=== PATIENT | male | born 1965 | race Caucasian/White ===

== ENCOUNTER 2017-07-03 09:27 | Emergency (ER) | payer BC, OTHER ==
[2017-07-03 09:40] VITALS: BP 116/50; PULSE 90; TEMP 98; BMI 36.1
[2017-07-03] MEDS ORDERED: KETOROLAC TROMETHAMINE 60 MG/2 ML VIAL IM ONE (10:44)
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
[2017-07-03] MEDS ORDERED: KETOROLAC TROMETHAMINE 60 MG/2 ML VIAL ONE (10:51)
== END 2017-07-03 11:04 | disposition home or self-care (01) ==
LOC: JERFT 09:27
PROC: 3E0233Z Introduction of Anti-inflammatory into Muscle, Percutaneous Approach (ICD-10-PCS; principal; 2017-07-03)
DX: M54.5 Low back pain (principal); V53.5XXA Driver of pick-up truck or van injured in collision with car, pick-up truck or van in traffic accident, initial encounter; Y92.414 Local residential or business street as the place of occurrence of the external cause; Y93.89 Activity, other specified; Y99.8 Other external cause status
CPT/HCPCS: 99281-25

== ENCOUNTER 2020-09-25 18:35 | Inpatient (IN) | payer OTHER ==
[2020-09-25 18:59] VITALS: BMI 35.9
[2020-09-25 21:01] LABS: BASO % 0.5 % (0-2.0); HEMATOCRIT 45.9 % (35.4-49); HEMOGLOBIN 15.7 GM/dL (11.7-16.9); LYMPH % 29.1 % (8-40); MCH 31.4 pg (25.7-33.7); MCHC 34.2 g/dl (32.0-35.9); MEAN CELL VOLUME 91.9 fl (80-96); MEAN PLT VOLUME 8.9 fl (7.5-11.1); MONO % 8.4 % (3.8-10.2); PLATELET COUNT 190 10^3/uL (134-434); RBC 4.99 M/mm3 (4.00-5.60); RDW 14.5 % (11.9-15.9); WHITE BLOOD COUNT 5.7 K/mm3 (4.0-10.0)
[2020-09-25 21:05] LABS: CHLORIDE 107 mmol/L (98-107); SODIUM 141 mmol/L (136-145)
[2020-09-25 21:07] LABS: CALCIUM 8.7 mg/dL (8.5-10.1)
[2020-09-25 21:08] LABS: ALBUMIN 3.9 g/dl (3.4-5.0); ANION GAP 5 MMOL/L (8-16); BLOOD UREA NITROGEN 18.9 mg/dL (7-18); CO2 29 mmol/L (21-32); GLUCOSE,RANDOM 116 mg/dL (74-106)
[2020-09-25 21:11] LABS: CREATININE 0.8 mg/dL (0.55-1.3); SGOT/AST 18 U/L (15-37); SGPT/ALT 32 U/L (13-61)
[2020-09-25 21:12] LABS: BILIRUBIN,TOTAL 0.4 mg/dL (0.2-1); TOT PROT 7.5 g/dl (6.4-8.2)
[2020-09-25 21:14] LABS: ALK PHOS 92 U/L (45-117)
[2020-09-25] MEDS ORDERED: ARTIFICIAL TEARS (POLYVINYL ALCOHOL) OPTH DROPS OU ONE (22:43)
[2020-09-25] MEDS ORDERED: valACYclovir HCL 1000 MG TABLET PO ONE (23:27)
[2020-09-25] MEDS ORDERED: predniSONE 20 MG TABLET (UD) PO ONE (23:27)
[2020-09-25] MEDS ORDERED: predniSONE 20 MG TABLET (UD) ONE (23:33)
[2020-09-25] MEDS ORDERED: valACYclovir HCL 500 MG TABLET (FP) ONE (23:34)
[2020-09-26] MEDS ORDERED: SODIUM CHLORIDE 0.9% 500 ML INFUS.BAG IV ONE (08:15)
[2020-09-26] MEDS: APIXABAN 5 MG TABLET PO SCH ×2 (11:25→22:05)
[2020-09-26] MEDS: INSULIN SLIDING SCALE (NOVOLOG) 1 VIAL SQ SCH ×2 (11:39→16:50)
[2020-09-26] MEDS: VERAPAMIL HCL 120 MG E.R. TABLET PO SCH (14:20)
[2020-09-26] MEDS ORDERED: ATORVASTATIN CA 80 MG TABLET (FP) PO SCH (22:00)
[2020-09-27 05:08] VITALS: PULSE 101
[2020-09-27 05:50] VITALS: BP 122/72; TEMP 97.5
[2020-09-27] MEDS: INSULIN SLIDING SCALE (NOVOLOG) 1 VIAL SQ SCH (06:45)
[2020-09-27 08:13] LABS: BASO % 0.5 % (0-2.0); EOS % 1.4 % (0-4.5); HEMOGLOBIN 14.3 GM/dL (11.7-16.9); LYMPH % 32.2 % (8-40); MCH 31.3 pg (25.7-33.7); MCHC 34.1 g/dl (32.0-35.9); MEAN CELL VOLUME 91.8 fl (80-96); MEAN PLT VOLUME 9.3 fl (7.5-11.1); MONO % 8.2 % (3.8-10.2); NEUT % 57.7 % (42.8-82.8); PLATELET COUNT 177 10^3/uL (134-434); RBC 4.57 M/mm3 (4.00-5.60); RDW 14.3 % (11.9-15.9); WHITE BLOOD COUNT 6.7 K/mm3 (4.0-10.0)
[2020-09-27 08:36] LABS: CALCIUM 8.2 mg/dL (8.5-10.1)
[2020-09-27 08:37] LABS: ALBUMIN 3.4 g/dl (3.4-5.0); BLOOD UREA NITROGEN 17.1 mg/dL (7-18); MAGNESIUM 2.3 mg/dL (1.8-2.4)
[2020-09-27 08:39] LABS: CREATININE 0.7 mg/dL (0.55-1.3); PHOSPHOROUS 4.2 mg/dL (2.5-4.9)
[2020-09-27 08:40] LABS: BILIRUBIN,TOTAL 0.6 mg/dL (0.2-1)
[2020-09-27 08:41] LABS: TOT PROT 6.5 g/dl (6.4-8.2)
[2020-09-27] MEDS: APIXABAN 5 MG TABLET PO SCH (09:39)
[2020-09-27] MEDS: VERAPAMIL HCL 120 MG E.R. TABLET PO SCH (09:54)
== END 2020-09-27 16:54 | disposition home or self-care (01) | DRG 48 ==
LOC: JER 18:35 → JERBED 09-26 03:20 → J4W 09-26 10:38
PROVIDERS: ADMIT Internal Medicine; ATTEND Internal Medicine
DX: G51.0 Bell's palsy (principal); E78.00 Pure hypercholesterolemia, unspecified; I45.10 Unspecified right bundle-branch block; E78.5 Hyperlipidemia, unspecified; I48.91 Unspecified atrial fibrillation; I10 Essential (primary) hypertension; E11.9 Type 2 diabetes mellitus without complications; E66.9 Obesity, unspecified; Z68.35 Body mass index [BMI] 35.0-35.9, adult
CPT/HCPCS: 36415; 70450-TC; 70551-TC; 71046-TC-FY; 80053; 80061; 82550; 82607; 82746; 82962; 83036; 83735; 83880; 84100; 84443; 84484; 85025; 86618; 93005; 93010; 99285-25; C9803; U0003; U0005

== ENCOUNTER 2020-09-29 16:55 | Emergency (ER) | payer OTHER ==
[2020-09-30 11:08] LABS: SARS-CoV-2 NAA Not Detected (Not Detected)
== END 2020-09-29 17:55 | disposition home or self-care (01) ==
LOC: JVIRT 16:55
DX: Z20.822 Contact with and (suspected) exposure to COVID-19 (principal)
CPT/HCPCS: C9803; Q3014-GT; U0003; U0005

== ENCOUNTER 2021-05-15 11:47 | Emergency (ER) | payer OTHER ==
[2021-05-15 12:14] VITALS: BMI 36.9
[2021-05-15 12:24] VITALS: BP 149/90; PULSE 78; TEMP 98.9
[2021-05-15] MEDS ORDERED: ALBUTEROL SO4 2.5/IPRATROPIUM 0.5 INH SOL 3 ML VIAL.NEB. NEB ONE (12:31)
[2021-05-15 13:14] LABS: THROAT:GRP A STREP NOT DETECTED (NOTDETECTED)
[2021-05-16 16:07] LABS: SARS-CoV-2 NAA Not Detected (Not Detected)
== END 2021-05-15 13:51 | disposition home or self-care (01) ==
LOC: JER 11:47
PROC: 3E0F7GC Introduction of Other Therapeutic Substance into Respiratory Tract, Via Natural or Artificial Opening (ICD-10-PCS; principal; 2021-05-15)
DX: R05.1 Acute cough (principal)
CPT/HCPCS: 71046-TC-FY; 87651; 87804; 99284-25; C9803-CS; U0003; U0005